=== PATIENT | female | born 1975 | race Caucasian/White ===

== ENCOUNTER 2020-05-07 19:03 | Emergency (ER) | payer BC ==
[~2020-05-07] VITALS: Ht 165.1 cm; Wt 73.5 kg
[2020-05-07] MEDS ORDERED: HYDROCHLOROTHIA25 MG PO (19:27)
[2020-05-07] MEDS ORDERED: METOPROLOL SUCC25 MG PO (19:27)
[2020-05-07] MEDS ORDERED: CLEOCIN HCL300 MG PO (19:41)
== END 2020-05-07 20:11 | disposition home or self-care (01) ==
LOC: ED 19:03
DX: S91.342A Puncture wound with foreign body, left foot, initial encounter (principal); W45.8XXA Other foreign body or object entering through skin, initial encounter; I10 Essential (primary) hypertension; Z79.899 Other long term (current) drug therapy; Z88.7 Allergy status to serum and vaccine
CPT/HCPCS: 99283